=== PATIENT | male | born 1930 | race Caucasian/White ===

== ENCOUNTER 2016-07-22 10:43 | Outpatient (CLI) | payer MEDICARE, OTHER ==
[2016-07-22] VITALS (13 sets, daily range): BP systolic 111–166; BP diastolic 58–75; PULSE 48–59; RESP 11–22; TEMP 97.7–98.1; O2SAT 94–97; Ht 182.9 cm; Wt 86.2 kg
[~2016-07-22] VITALS: Ht 182.9 cm; Wt 86.2 kg
[~2016-07-22 10:43] MED LIST: ASCO500C15 PO; ASPI-730 PO; CALCIUM/MAGNESIUM PO; DICL100G3 TOP; DUTA0.5C9 PO; ERGO400T6 PO; FISH1CAP23 PO; GLUC1TAB38 PO; MULT-806 PO; OXYC5TAB PO; [UNRECOGNIZED DRUG - CODE] PO
--- NOTE | 2016-07-22 10:55 | NUR ---
Admit Pt admitted to room 118 via wheelchair, accompanied by family. Pt uses cane for transfer. Will continue to monitor.
--- NOTE | 2016-07-22 11:11 | HPPDOC ---
KAI RAZA CUTTER MACHINE 07/22/16 1056: HPI - Adult Date DATE: 07/22/16 TIME: 10:49 General Date of Admission Date of Admission: 07/22/16 Chief Complaint: Dyspnea History of Present Illness Bronson is a 85 year old male who is known to Dr. 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 He is being admitted as an outpatient for a left heart catheterization with possible PCI today. Past Medical History Past Medical History Metabolic: DENIES: cancer, diabetes, hypercholesterolemia, hypertension, hypothyroidism Cardiac: DENIES: A-fib, CAD, CHF, [place], angina Respiratory: DENIES: COPD Surgical History General: gallbladder Joint: hip (bilateral replacements), knee (rt replacement), shoulder ( bilateral replacements) Current Medications Home Meds Reported Medications Lactase (Lactaid Fast Act) 1 Tab Tablet, 1 TAB PO DAILY 07/22/16 Vit C/E/Zn/Coppr/Lutein/Zeaxan (Preservision Areds 2 Softgel) 1 Each Capsule, 2 CAP PO DAILY 07/22/16 Vitamin B Complex & Vit C No.4 (Super B Complex) 150 Mg Tablet, 1 TAB PO DAILY 07/22/16 Doxazosin Mesylate (Doxazosin Mesylate) 4 Mg Tablet, 1 TAB PO DAILY, TAB 07/22/16 Ibuprofen/Diphenhydramine Cit (Advil Pm Caplet) 1 Each Tablet, 1 CAP PO HS 07/22/16 Ergocalciferol (Vitamin D) 400 Unit Tablet, 400 UNIT PO DAILY, TAB 09/30/13 Ascorbic Acid (Vitamin C) 500 Mg Capsule.sa, 500 MG PO DAILY, TAB 09/30/13 [Calcium/Magnesium] No Conflict Check, 500 PO TID 11/10/08 Multivitamins (Multivitamin) 1 Tab Tablet, 1 TAB PO DAILY 11/10/08 Fish Oil/[place]-3 Fatty Acids (Fish Oil 1,000 Mg Softgel) 1 Cap Capsule, 1 CAP PO TID 11/09/08 Aspirin (Aspirin) 325 Mg Tablet, 325 MG PO DAILY 11/09/08 Allergies: Coded Allergies: latex (Verified Allergy, Intermediate, SWELLING, 07/22/16) hydrocodone (Verified Adverse Reaction, Severe, HALLUCINATIONS, 07/22/16) Family History FOUND: CVA (father), [place] (father), diabetes (father- type II) Vaccines SOMETIME IN LAST 10 YEARS Social History Smoking Status: Never smoker Marital Status: Sexuality: female partner Current Occupational Status: retired Review of Systems Constitutional: DENIES: chills, fever Eyes Vision: DENIES: blurring ENMT Hearing: REPORTS: hearing loss, DENIES: tinnitus Balance: DENIES: vertigo Sinuses: NOT FOUND: rhinorrhea Mouth/Throat: DENIES: sore throat Cardiovascular DENIES: chest pain, dyspnea on exertion, murmur, orthopnea Rhythm/Rate: DENIES: irregular beat, palpitations, tachycardia Vascular: pedal edema Pulmonary Respiratory: DENIES: cough, sputum GI Upper Abdomen: DENIES: nausea, vomiting Lower Abdomen: DENIES: diarrhea General: DENIES: dysuria Integumentary Skin: DENIES: rash, sores Neurological General: DENIES: headache, numbness, syncope, vertigo, weakness All Other Systems All Other Systems: Reviewed (remainder of 10-point ROS Neg.) Physical Exam General General Nourishment: well nourished, well developed, apparent age Height (Feet): 6 Telemetry Rhythm: Sinus Rhythm ENMT Brief: NOT FOUND: hearing intact Neck Brief: NOT FOUND: JVD, carotid bruits Respiratory Brief: FOUND: clear all joshua, equal bilaterally, NOT FOUND: rales , wheezes Cardiovascular (brief) Cardiac Brief: FOUND: murmur (I/), pedal edema (trace), regular rate, regular rhythm, NOT FOUND: click, gallop Abdomen (brief) Abdominal Brief: FOUND: BS normo active x4, soft, NOT FOUND: tender Integumentary (brief) Integumentary Brief: FOUND: dry, pink, warm Neurologic RN Documented GCS Eye Opening: Verbal: Motor: Total: Psychiatric (brief) FOUND: alert, attentive, normal affect, oriented Laboratory Laboratory Tests Test 07/22/16 11:25 White Blood Count 8.0T/MM3 Red Blood Count 4.12M/MM3 Hemoglobin 13.3GM/DL Hematocrit 38.5% Mean Corpuscular Volume 93.4UM3 Mean Corpuscular Hemoglobin 32.3UUG Mean Corpuscular Hemoglobin Concent 34.5GM/DL RDW Standard Deviation 44.7FL Platelet Count 192T/MM3 Mean Platelet Volume 8.9UM3 Immature Granulocyte % (Auto) 0.1% Neutrophils (%) (Auto) 60.9% Lymphocytes (%) (Auto) 28.4% Monocytes (%) (Auto) 9.2% Eosinophils (%) (Auto) 1.2% Basophils (%) (Auto) 0.2% Absolute Immature Granulocyte (auto 0.01T/MM3 Absolute Neutrophils (auto) 4.9T/MM3 Absolute Lymphocytes (auto) 2.3T/MM3 Absolute Monocytes (auto) 0.7T/MM3 Absolute Eosinophils (auto) 0.1T/MM3 Absolute Basophils (auto) 0.0T/MM3 Turbidity < 20 Sodium Level 137MEQ/L Potassium Level 4.2MEQ/L Chloride Level 101MEQ/L Carbon Dioxide Level 26MEQ/L Anion Gap 10MEQ/L Blood Urea Nitrogen 11.0MG/DL Creatinine 0.6MG/DL Glomerular Filtration Rate Calc 128 BUN/Creatinine Ratio 18RATIO Glucose Level 96MG/DL Calculated Osmolality 263MOSM/KG Calcium Level 8.9MG/DL Icterus Index < 2 Chemistry Specimen Hemolysis < 15 EKG Sinus bradycardia with 1st degree AV block, occasional PVCs Assessment & Plan Problems: (1) Abnormal findings on diagnostic imaging of heart and coronary circulation Status: Acute Assessment & Plan: recent stress test that was positive for ischemia. Left heart cath today (2) Shortness of breath Status: Chronic Assessment & Plan: Patient reports this has improved with deeper breaths (3) Nonrheumatic aortic valve insufficiency Status: Chronic Assessment & Plan: will continue current therapy with routine monitoring (4) Aortic ectasia Status: Chronic Assessment & Plan: routine monitoring Plan/Intensity of Service left heart catheterization with possible PCI today. Code Status Full Code Hospital Course Summary Disclaimer The hospital course summary below is not to be considered part of the above Progress Note. GRACIELA MONCADA MD 07/24/16 1019: Past Medical History Current Medications Home Meds Reported Medications Lactase (Lactaid Fast Act) 1 Tab Tablet, 1 TAB PO DAILY 07/22/16 Vit C/E/Zn/Coppr/Lutein/Zeaxan (Preservision Areds 2 Softgel) 1 Each Capsule, 2 CAP PO DAILY 07/22/16 Vitamin B Complex & Vit C No.4 (Super B Complex) 150 Mg Tablet, 1 TAB PO DAILY 5/8/17 Doxazosin Mesylate (Doxazosin Mesylate) 4 Mg Tablet, 1 TAB PO DAILY, TAB 07/22/16 Ibuprofen/Diphenhydramine Cit (Advil Pm Caplet) 1 Each Tablet, 1 CAP PO HS 07/22/16 Ergocalciferol (Vitamin D) 400 Unit Tablet, 400 UNIT PO DAILY, TAB 09/30/13 Ascorbic Acid (Vitamin C) 500 Mg Capsule.sa, 500 MG PO DAILY, TAB 09/30/13 [Calcium/Magnesium] No Conflict Check, 500 PO TID 11/10/08 Multivitamins (Multivitamin) 1 Tab Tablet, 1 TAB PO DAILY 11/10/08 Fish Oil/[place]-3 Fatty Acids (Fish Oil 1,000 Mg Softgel) 1 Cap Capsule, 1 CAP PO TID 11/09/08 Aspirin (Aspirin) 325 Mg Tablet, 325 MG PO DAILY 11/09/08 Allergies: Coded Allergies: latex (Verified Allergy, Intermediate, SWELLING, 07/22/16) hydrocodone (Verified Adverse Reaction, Severe, HALLUCINATIONS, 07/22/16) Assessment & Plan Hospital Course Summary Hospital Course Summary After examining the patient I agree with the above assessment. I am involved in the formulation of the patient's plan of care. KAI RAZA APRN July 22, 2016 10:56 GRACIELA MONCADA MD July 24, 2016 10:19
[2016-07-22] MEDS ORDERED: IBUP1TAB79 PO (11:35)
[2016-07-22] MEDS ORDERED: VIT1CAPS47 PO (11:36)
[2016-07-22] MEDS ORDERED: [UNRECOGNIZED DRUG - CODE] PO (11:36)
[2016-07-22] MEDS ORDERED: DOXA4TAB3 PO (11:36)
[2016-07-22] MEDS ORDERED: VITA150T PO (11:36)
[2016-07-22 11:37] LABS: BASOPHILS % (AUTO) 0.2 % (0-2); EOSINOPHILS # (AUTO) 0.1 T/MM3 (0-0.5); EOSINOPHILS % (AUTO) 1.2 % (0-4); HCT - HEMATOCRIT 38.5 % (41-53); HGB - HEMOGLOBIN 13.3 GM/DL (13.5-17.5); IMMATURE GRANULOCYTE # (AUTO) 0.01 T/MM3 (0.00-0.03); IMMATURE GRANULOCYTE % (AUTO) 0.1 % (0.0-0.5); LYMPHOCYTES # (AUTO) 2.3 T/MM3 (1-4.8); LYMPHOCYTES % (AUTO) 28.4 % (23-45); MEAN CORPUSCULAR HGB 32.3 UUG (26-34); MEAN CORPUSCULAR HGB CONC(MCHC 34.5 GM/DL (31-37); MEAN CORPUSCULAR VOLUME 93.4 UM3 (80-100); MEAN PLATELET VOLUME 8.9 UM3 (9.4-12.4); MONOCYTES # (AUTO) 0.7 T/MM3 (0-0.8); MONOCYTES % (AUTO) 9.2 % (0-9.0); NEUTROPHILS #(AUTO)-ABSOLUTE 4.9 T/MM3 (1.8-7.7); NEUTROPHILS % (AUTO) 60.9 % (33-66); RED BLOOD COUNT 4.12 M/MM3 (4.50-5.90)
[2016-07-22] MEDS ORDERED: HEPARIN 1,000units in NS 500ml BAG IV ONE (11:39)
[2016-07-22] MEDS ORDERED: LIDOCAINE 1% (10mg/ml) 30ml SDV ONE (11:39)
[2016-07-22] MEDS ORDERED: NORMAL SALINE 1,000 ML IV SCH (11:45)
[2016-07-22 11:50] LABS: ANION GAP 10 MEQ/L (5-15); BUN/CREATININE RATIO 18 RATIO (6-26); CALCIUM 8.9 MG/DL (8.4-10.2); CHLORIDE 101 MEQ/L (98-107); CO2 - CARBON DIOXIDE 26 MEQ/L (22-30); CREATININE 0.6 MG/DL (0.8-1.5); GLOMERULAR FILTRATION RATE 128; GLUCOSE 96 MG/DL (75-110); POTASSIUM 4.2 MEQ/L (3.6-5); SODIUM 137 MEQ/L (134-144)
--- NOTE | 2016-07-22 12:32 | NUR ---
CM CM VISITED PT AND FAMILY. CM EXPLAINED ROLE AND PROVIDED CONTACT INFORMATION. PT DENIES NEEDS AND PLANS TO RETURN HOME POST HOSPITAL STAY. PT IS AWARE TO CONTACT CM IF NEEDS [facility].
--- NOTE | 2016-07-22 13:00 | NUR ---
TO [facility] PT TRANSPORTED TO [facility] AT THIS TIME VIA CART AND ACCOMPANIED BY STAFF. VITAL SIGNS STABLE ON ROOM AIR. PT VOIDED PRIOR TO TRANSFER. AND DAUGHTER PRESENT UPON TRANSFER. INFORMED CONSENT OBTAINED. WILL CONTINUE TO MONITOR.
[2016-07-22] MEDS ORDERED: NITROGLYCERIN 50mg/10ml INJECTION IV ONE (13:15)
[2016-07-22] MEDS ORDERED: VERAPAMIL 5mg/2ml INJECTION IV ONE (13:15)
[2016-07-22] MEDS ORDERED: FENTANYL 100mcg/2ml INJECTION ONE (13:16)
[2016-07-22] MEDS ORDERED: MIDAZOLAM 2mg/2ml INJECTION ONE (13:16)
[2016-07-22] MEDS ORDERED: BISACODYL 10 MG SUPPOSITORY RECTALLY PRN (13:45)
[2016-07-22] MEDS ORDERED: ONDANSETRON 4mg/2ml INJECTION IV PRN (13:45)
[2016-07-22] MEDS ORDERED: NITROGLYCERIN 0.4 MG SUBLINGUAL TABLET SL PRN (13:45)
[2016-07-22] MEDS ORDERED: ACETAMINOPHEN 325 MG TABLET PO PRN (13:45)
[2016-07-22] MEDS ORDERED: MAG-AL + SIM LIQUID 30 ML UDC PO PRN (13:45)
[2016-07-22] MEDS ORDERED: LORAZEPAM 2 MG/ML INJECTION IV PRN (13:45)
--- NOTE | 2016-07-22 13:45 | NUR ---
RETURN PT RETURNED TO ROOM 118 AT THIS TIME VIA CART. PT TRANSFERRED SELF FROM CART TO BED. HOB ELEVATED. VITAL SIGNS STABLE ON ROOM AIR. FAMILY PRESENT UPON RETURN. BED ALARM ON. WILL CONTINUE TO MONITOR.
--- NOTE | 2016-07-22 16:23 | NUR ---
DISCHARGE PT DISCHARGED TO HOME AT THIS TIME IN THE COMPANY OF HIS DAUGHTER. PT TRANSPORTED TO THE ER ENTRANCE BY WHEELCHAIR/STAFF. DISCHARGE INSTRUCTIONS INCLUDING DIET, ACTIVITY RESTRICTIONS, MEDICATIONS, FOLLOW UP APPOINTMENT, [facility] TR[facility] RADIAL HEART CATH INSTRUCTIONS AND REPORTABLE S/S GIVEN AND REVIEWED WITH PATIENT. PT VERBALIZED UNDERSTANDING OF THESE INSTRUCTIONS AND HAD NO FURTHER QUESTIONS. IVL DISCONTINUED. ARMBAND REMOVED. PERSONAL BELONGINGS RETURNED.
--- NOTE | 2016-07-22 18:06 | CVPROF ---
CARDIAC CATHETERIZATION DATE OF PROCEDURE July 22, 2016 This is a pleasant 85-year-old gentleman with abnormal stress test and was referred for further evaluation by cardiac catheterization and possible intervention. Informed consent was obtained after explaining the procedure and the potential risks to the patient who agreed to proceed with the procedure. PROCEDURE 1. Left heart catheterization. 2. Coronary angiography. 3. Left ventriculography. TECHNIQUE The patient was prepped and draped in the usual sterile techniques. 1% lidocaine was used for local anesthesia. Conscious sedation was performed using Versed and fentanyl. Using modified Seldinger technique, arterial access was obtained into the right radial artery with placement of a 6-[place] arterial sheath. 3000 units of heparin, 300 mcg of nitroglycerin, and 2.5 mg of verapamil were given through the arterial sheath. LEFT VENTRICULOGRAPHY Left ventriculography in single-plane COCHRAN shallow projection showed normal LV systolic function with ejection fraction of about 65% with no mitral regurgitation or gradient across the aortic valve. LVEDP was about 20. CORONARY ANGIOGRAPHY Left main was free of significant lesions. Left anterior descending artery ended before the apex. It was a medium-caliber vessel with minor irregularities but no stenosis greater than 20%-30%. Diagonals also had minor irregularities with no stenosis greater than 20%-30%. Left circumflex was nondominant with diffuse disease of up to about 30% stenosis. It was a medium-caliber vessel. Right coronary artery was quite large and ectatic and dominant with about 40% stenosis at the peak of the goel's crook. Distally PDA had about 40% stenosis at the ostium. The patient tolerated the procedure well with no complications. IMPRESSION 1. [id number] non obstructive coronary artery disease as described above. 2. Normal LV systolic function with ejection fraction of 65%. PLAN Medical management. MTDD
== END 2016-07-22 16:23 | disposition home or self-care (01) ==
LOC: CATH 10:43 → SRG 10:46 → CATH 16:23
PROVIDERS: ATTEND Internal Medicine Cardiovascular Disease
DX: I25.10 Atherosclerotic heart disease of native coronary artery without angina pectoris (principal); R94.39 Abnormal result of other cardiovascular function study; R06.02 Shortness of breath; I35.1 Nonrheumatic aortic (valve) insufficiency; I77.819 Aortic ectasia, unspecified site; Z79.82 Long term (current) use of aspirin; Z79.899 Other long term (current) drug therapy; Z82.3 Family history of stroke; Z82.49 Family history of ischemic heart disease and other diseases of the circulatory system
CPT/HCPCS: 36415; 80048; 85025; 93005; 93458; C1893; J1644; J2250; J3010; J3490; J7030; Q9967